=== PATIENT | female | born 1995 | race American Indian/Alaskan Native ===

== ENCOUNTER 2018-11-14 21:28 | Emergency (ER) | payer MEDICAID ==
--- NOTE | 2018-11-14 21:35 | Event Note ---
ED Screening Note ED Screening Note: pt states she has right sided abd pain that began 3 days ago no N/V no diarrhea no fever no urinary sx no vaginal bleeding no vaginal discharge LNMP:jul 14 pt is currently 17 weeks OB: Smiley /P:0/A:1 no pmhx no allergies to meds has been taking her vitamin former smoker former drinker no drug use This initial assessment/diagnostic orders/clinical plan/treatment(s) is/are subject to change based on patients health status, clinical progression and re- assessment by fellow clinical providers in the ED. Further treatment and workup at subsequent clinical providers discretion. Patient/guardian urged not to elope from the ED as their condition may be serious if not clinically assessed and managed. Initial orders include: labs, UA, OB US
[2018-11-14 22:10] LABS: Basophils # (Auto) 0.1 K/mm3 (0.0-0.1); Basophils % (Auto) 0.7 % (0.0-1.8); Eosinophils # (Auto) 0.2 K/mm3 (0.0-0.4); Eosinophils % (Auto) 2.7 % (0.0-4.3); Hematocrit 34.7 % (30.3-42.9); Hemoglobin 12.1 gm/dl (10.1-14.3); Lymphocytes # (Auto) 1.8 K/mm3 (1.2-5.4); Lymphocytes % (Auto) 24.3 % (13.4-35.0); Mean Corpuscular HGB Conc 35 % (30-34); Mean Corpuscular Volume 90 fl (79-97); Monocytes # (Auto) 0.6 K/mm3 (0.0-0.8); Monocytes % (Auto) 8.6 % (0.0-7.3); Platelet Count 219 K/mm3 (140-440); Red Blood Count 3.85 M/mm3 (3.65-5.03); Red Cell Distribution Width 13.9 % (13.2-15.2)
[2018-11-14 22:26] LABS: Alanine Aminotransferase 8 units/L (7-56); Albumin 3.4 g/dL (3.9-5); BUN/Creatinine Ratio 10; Blood Urea Nitrogen 7 mg/dL (7-17); Hemolysis Index 10
[2018-11-14 23:10] LABS: Bacteria,Urine 1+ /HPF (Negative); Bilirubin,Urine NEG (Negative); Blood,Urine NEG (Negative); Color,Urine Yellow (Yellow); Mucus,Urine 2+ /HPF; Protein,Urine <15 mg/dL mg/dL (Negative)
[2018-11-14] MEDS ORDERED: ZOFRAN IV ONE (23:14)
--- NOTE | 2018-11-15 00:37 | Ultrasound Report ---
PROCEDURE: US ABDOMEN LIMITED TECHNIQUE: Real-time sonography was performed of the gallbladder with image documentation. HISTORY: RUQ PAIN COMPARISONS: None . FINDINGS: Gallbladder is normal. The common bile duct is normal measuring 6 mm. The portion of the liver and ri ght kidney imaged are normal . IMPRESSION: Normal Examination . This document is electronically signed by Charis Caceres DO., November 15 2018 12:35:32 AM ET
--- NOTE | 2018-11-15 00:39 | Ultrasound Report ---
PROCEDURE: US OB >= 14 WEEKS FETUS TECHNIQUE: Real-time limited sonographic examination was performed for evaluation of well-bein g, placenta for each fetus with image documentation (1 or more fetuses). HISTORY: 17 weeks preg, right sided abd pain COMPARISONS: None . FINDINGS: MATERNAL Uterus: Within normal limits . Cervix length:, 6.4 cm. Internal Os: closed . FETUS IUP: Single living intrauterine . Position: Transverse . Placental position: Posterior, without previa . Amniotic fluid volume: Normal Heart rate and rhythm: 150 BPM, Regular . anatomic survey: Not performed on this study . MEASUREMENTS BPD: 4.1 cm . HC: 14.5 cm . AC: 12.2 cm . FL: 2.5 cm . Mean Gestational Age (composite criteria): 17 weeks 6 days . Ratio biometry: Normal . Estimated Weight: 207 grams Interval growth: No prior study . Estimated Due Date (earliest scan): 04/18/2019 . IMPRESSION: 1. Single living intrauterine gestation at approximately 17 weeks 6 days . 2. EDC by US 04/18/2019 . This document is electronically signed by Charis Caceres DO., November 15 2018 12:37:28 AM ET
--- NOTE | 2018-11-15 01:21 | Emergency Department Report ---
ED Abdominal Pain HPI - General Chief Complaint: Abdominal Pain Stated Complaint: PREG 17 WKS/R SIDE ABD PAIN Time Seen by Provider: 11/14/18 21:33 Source: patient Mode of arrival: Ambulatory Limitations: No Limitations - History of Present Illness Initial Comments: Patient is a A0 23-year-old -[place] female who is approximately 17 gestation presents to the ED with complaint of acute onset persistent right upper quadrant abdominal pain for the last 3 days. Patient denies nausea, vomiting, diarrhea, dysuria, urinary frequency and urgency, traumatic injury, heavy lifting, dizziness, headache, chest pain, shortness of breath, fever or c hills, vaginal bleeding or vaginal discharge and low back pain. MD Complaint: abdominal pain (RUQ Pain) -: Sudden, days(s) (3) Location: RUQ, epigastric Radiation: RUQ, epigastric Migration to: no migration Severity: moderate Severity scale (0 -10): 5 Quality: cramping, stabbing, aching, sharp Consistency: constant Improves With: nothing Worsens With: movement Associated Symptoms: denies other symptoms. denies: nausea, vomiting, diarrhea, fever, chills, constipation, dysuria, melena, hematuria, anorexia - Related Data Previous Rx's Medication Instructions Recorded Last Taken Type Cyclobenzaprine HCl [Flexeril 5 MG 5 mg PO Q8H PRN #15 tab 11/15/18 Unknown Rx TAB] Ranitidine HCl [Zantac] 150 mg PO Q12H #30 tablet 11/15/18 Unknown Rx Allergies Allergy/AdvReac Type Severity Reaction Status Date / Time No Known Allergies Allergy Unverified 11/14/18 21:31 ED Review of Systems ROS: Stated complaint: PREG 17 WKS/R SIDE ABD PAIN Other details as noted in HPI Constitutional: denies: chills, fever Eyes: denies: eye pain, eye discharge, vision change ENT: denies: ear pain, throat pain Respiratory: denies: cough, shortness of breath, wheezing Cardiovascular: denies: chest pain, palpitations Endocrine: no symptoms reported Gastrointestinal: abdominal pain (RUQ and Epigastric). denies: nausea, diarrhea, constipation, hematemesis, hematochezia Genitourinary: denies: urgency, dysuria, frequency, hematuria, discharge, abnormal menses, dyspareunia Musculoskeletal: denies: back pain, joint swelling, arthralgia Skin: denies: rash, lesions Neurological: denies: headache, weakness, paresthesias Psychiatric: denies: anxiety, depression Hematological/Lymphatic: denies: easy bleeding, easy bruising ED Past Medical Hx - Past Medical History Previous Medical History?: No - Surgical History Past Surgical History?: No - Social History Smoking Status: Former Smoker Substance Use Type: None - Medications Home Medications: Home Medications Medication Instructions Recorded Confirmed Last Taken Type Cyclobenzaprine HCl [Flexeril 5 MG 5 mg PO Q8H PRN #15 tab 11/15/18 Unknown Rx TAB] Ranitidine HCl [Zantac] 150 mg PO Q12H #30 tablet 11/15/18 Unknown Rx ED Physical Exam - General Limitations: No Limitations General appearance: alert, in no apparent distress - Head Head exam: Present: atraumatic, normocephalic, normal inspection - Eye Eye exam: Present: normal appearance, PERRL, EOMI. Absent: periorbital swelling, periorbital tenderness - ENT ENT exam: Present: normal exam, normal orophraynx, mucous membranes moist, TM's normal bilaterally, normal external ear exam - Neck Neck exam: Present: normal inspection, full ROM. Absent: tenderness - Respiratory Respiratory exam: Present: normal lung sounds bilaterally. Absent: respiratory distress, wheezes, rales, rhonchi, chest wall tenderness, accessory muscle use, decreased breath sounds, prolonged expiratory - Cardiovascular Cardiovascular Exam: Present: regular rate, normal rhythm, normal heart sounds. Absent: systolic murmur, diastolic murmur, rubs, gallop - GI/Abdominal GI/Abdominal exam: Present: soft, tenderness (RUQ and epigastric), guarding, normal bowel sounds, other (Gravid abdomen). Absent: rebound, rigid, hyperactive bowel sounds, hypoactive bowel sounds, organomegaly - Rectal Rectal exam: Present: deferred - Extremities Exam Extremities exam: Present: normal inspection, full ROM, normal capillary refill - Back Exam Back exam: Present: normal inspection, full ROM. Absent: tenderness, CVA tenderness (R), CVA tenderness (L), muscle spasm, paraspinal tenderness - Neurological Exam Neurological exam: Present: alert, oriented X3, CN II-XII intact, normal gait, reflexes normal - Psychiatric Psychiatric exam: Present: normal affect, normal mood, anxious - Skin Skin exam: Present: warm, dry, intact, normal color. Absent: rash ED Course Vital Signs 11/14/18 21:34 Temperature 98.3 F Pulse Rate 78 Respiratory 16 Rate Blood Pressure 116/76 [Right] O2 Sat by Pulse 100 Oximetry - Reevaluation(s) Reevaluation #1: 11/15/18 01:19 Patient is alert and oriented 3 and is not in distress, and vital signs are stable. Lab test results including urinalysis were reviewed and are unremarkable. Right upper quadrant gallbladder ultrasound shows a normal gallbladder and gallbladder wall thickness, no sludge or gallstones. Transvaginal ultrasound shows an IUP with a heart rate of 150 bpm and approximat gautam 17 weeks and 6 days. Patient was treated for pain in the ED and on reevaluation, patient's pain resolved. Patient was discharged home on antacids and muscle relaxant and advised to take Tylenol as needed for pain. Patient discharged home and advised to follow up with her DOORPERSON [facility] physician in 2-3 days for reevaluation or return to the ED immediately if symptoms get worse. 11/15/18 01:21 ED Medical Decision Making - Lab Data Result diagrams: 11/14/18 21:52 11/14/18 21:52 - Radiology Data Radiology results: report reviewed, image reviewed Gallbladder US: Normal gallbladder and gallbladder wall; no pericholecystic fluid or cholelithiasis US: An IUP of approximately 17 weeks 6 days with a FHR of 150 bpm - Medical Decision Making Patient is alert and oriented 3 and is not in distress, and vital signs are stable. Lab test results including urinalysis were reviewed and are unremarkable. Right upper quadrant gallbladder ultrasound shows a normal gallbladder and gallbladder wall thickness, no sludge or gallstones. Transvaginal ultrasound shows an IUP with a heart rate of 150 bpm and approximately 17 weeks and 6 days. Patient was treated for pain in the ED and on reevaluation, patient's pain resolved. Patient was discharged home on an tacids and muscle relaxant and advised to take Tylenol as needed for pain. Patient discharged home and advised to follow up with her DOORPERSON [facility] physician in 2- 3 days for reevaluation or return to the ED immediately if symptoms get worse. - Differential Diagnosis Acute RUQ abdomen pain; Muscle strain of abdominal wall, GERD Critical care attestation.: If time is entered above; I have spent that time in minutes in the direct care of this critically ill patient, excluding procedure time. ED Disposition Clinical Impression: Acute abdominal pain in right upper quadrant GERD (gastroesophageal reflux disease) Qualifiers: Esophagitis presence: without esophagitis Qualified Code(s): K21.9 - Gastro- esophageal reflux disease without esophagitis Abdominal muscle strain Qualifiers: Encounter type: initial encounter Qualified Code(s): S39.011A - Strain of muscle, fascia and tendon of abdomen, initial encounter Disposition: TO HOME OR SELFCARE Is pt being admited?: No Does the pt Need Aspirin: No Condition: Stable Instructions: Abdominal Pain (ED), Muscle Strain (ED), Gastroesophageal Reflux Disease (ED) Additional Instructions: Take medications with food, drink plenty of fluids and follow up with the [facility]ORPERSON [facility] physician in 2-3 days for reevaluation. Return to the ED immediately if symptoms get worse. Prescriptions: Cyclobenzaprine HCl [Flexeril 5 MG TAB] 5 mg PO Q8H PRN #15 tab PRN Reason: Muscle Spasm Ranitidine HCl [Zantac] 150 mg PO Q12H #30 tablet Referrals: Elgin BAILEY MD [Primary Care Provider] - 3-5 Days Time of Disposition: 01:26 Print Language: CITIZ[place] OF [place]
[2018-11-15 01:54] VITALS: BP 111/70
== END 2018-11-15 01:54 | disposition home or self-care (01) ==
LOC: ED 21:28
DX: O9A.212 Injury, poisoning and certain other consequences of external causes complicating pregnancy, second trimester (principal); S39.011A Strain of muscle, fascia and tendon of abdomen, initial encounter; O99.612 Diseases of the digestive system complicating pregnancy, second trimester; K21.9 Gastro-esophageal reflux disease without esophagitis; Z3A.17 17 weeks gestation of pregnancy; Z87.891 Personal history of nicotine dependence; X58.XXXA Exposure to other specified factors, initial encounter; Y93.89 Activity, other specified; Y92.488 Other paved roadways as the place of occurrence of the external cause; Y99.8 Other external cause status
CPT/HCPCS: 36415; 76705; 76805; 80053; 81001; 83690; 84702; 85025; 99284; J2405

== ENCOUNTER 2019-05-09 14:43 | Emergency (ER) | payer MEDICAID ==
--- NOTE | 2019-05-09 15:52 | Emergency Department Report ---
Chief Complaint: Extremity Problem,Nontraumatic Stated Complaint: LT FOOT NUMBNESS Time Seen by Provider: 05/09/19 15:54 - HPI History of Present Illness: 23 y o presents to ED cc of left foot pain s/p 4 weeks vaginal delivery pt states pain with walking and some numbness to the foot She denies sob, chest pain or any other symptoms - ROS Review of Systems: As Noted in HPI - Exam Vital Signs: Vital Signs 05/09/19 14:49 Temperature 99.2 F Pulse Rate 118 H Respiratory 16 Rate Blood Pressure 117/73 O2 Sat by Pulse 98 Oximetry Physical Exam: Gen.: Patient ambulatory without limping gait. No left foot extremity swelling or redness, no calf tenderness. pain to palpation of the left foot MSE screening note: Focused history and physical exam performed. Due to findings the following was ordered: ED Medical Decision Making - Lab Data Result diagrams: 05/09/19 17:00 05/09/19 17:00 - Medical Decision Making 23 y o female presents for left foot pain Pulse rate decreased to 103 d-dimer collected to rule out PE Pt states that she has to leave because her ride is leaving and she is unable to stay. D- dimer elevated, pt made aware and was sent to the main side to be evaluated by physician. Patient was sent to be treated prophylaxis for DVT due to no Doppler engineering technician parking available. ED Disposition for MSE Clinical Impression: Paresthesia of left foot, DVT (deep venous thrombosis), Left leg pain, Hyperkalemia Disposition: - TO HOME OR SELFCARE Is pt being admited?: No Does the pt Need Aspirin: No Condition: Stable Instructions: Deep Venous Thrombosis (ED), Paresthesia (ED), Foot Drop (ED), Arthralgia (ED), Piriformis Syndrome (ED) Additional Instructions: please take medication as prescribed. We are starting you on a blood thinner prophylactically until you can have your ultrasound performed on Saturday. If you have any bleeding complications return to the emergency room immediatel y. please go to the vascular ultrasound lab on Saturday (05/11/19) at 9 AM to have your ultrasound of your left leg. Follow-up with a primary care doctor in the next 2-3 days. Return to the emergency room for any new or worsening symptoms. Prescriptions: Cyclobenzaprine [Flexeril] 10 mg PO QHS PRN #30 tablet PRN Reason: Muscle Spasm Apixaban [Eliquis] 10 mg PO BID #6 tablet Gabapentin 300 mg PO BID #40 cap Referrals: PRIMARY CARE, [Primary Care Provider] - 3-5 Days LIONEL WEST MD [Staff Physician] - 3-5 Days [facility] [Provider Group] - 3-5 Days Forms: Work/School Release Form(ED) Time of Disposition: 15:50 Print Language: KOSOVAN
[2019-05-09 17:25] LABS: Hematocrit 34.7 % (30.3-42.9); Hemoglobin 11.2 gm/dl (10.1-14.3); Mean Corpuscular HGB Conc 32 % (30-34); Mean Corpuscular Volume 88 fl (79-97); Platelet Count 234 K/mm3 (140-440); Red Blood Count 3.94 M/mm3 (3.65-5.03); Red Cell Distribution Width 13.8 % (13.2-15.2)
[2019-05-09 17:39] LABS: BUN/Creatinine Ratio 16; Blood Urea Nitrogen 13 mg/dL (7-17); Calcium 8.2 mg/dL (8.4-10.2); Hemolysis Index 111
[2019-05-09 17:47] LABS: Basophils % (Auto) 0.3 % (0.0-1.8); Eosinophils # (Auto) 0.1 K/mm3 (0.0-0.4); Lymphocytes # (Auto) 1.2 K/mm3 (1.2-5.4); Lymphocytes % (Auto) 30.9 % (13.4-35.0); Monocytes # (Auto) 0.4 K/mm3 (0.0-0.8); Monocytes % (Auto) 9.1 % (0.0-7.3)
--- NOTE | 2019-05-09 18:29 | XRay Report ---
CHEST PA AND LATERAL VIEWS INDICATION: elev ddimer. COMPARISON: None FINDINGS: Support devices: None Heart: Normal Lungs/Pleura: No acute pulmonary or pleural findings. IMPRESSION: 1. No significant abnormality. Signer Name: Conor Easley MD Signed: 05/09/2019 6:25 PM Workstation Name: [id number]
[2019-05-09] MEDS ORDERED: HYDROcodone/ACETAMINOPHEN 5-325 MG TAB ONE (19:13)
[2019-05-09] MEDS ORDERED: HYDROcodone/ACETAMINOPHEN 5-325 MG TAB PO ONE (19:13)
[2019-05-09] MEDS ORDERED: SODIUM POLYSTYRENE 15 GM/60 ML ORAL LIQD PO ONE (20:37)
[2019-05-09] MEDS ORDERED: APIXABAN 5 MG TAB PO ONE (20:41)
--- NOTE | 2019-05-09 20:48 | Emergency Department Report ---
ED General Adult HPI - General Chief complaint: Extremity Problem,Nontraumatic Stated complaint: LT FOOT NUMBNESS Time Seen by Provider: 05/09/19 15:54 Source: patient Mode of arrival: Ambulatory Limitations: No Limitations - History of Present Illness Initial comments: Patient is a 23-year-old female presents emergency room with complaints of left lower leg pain that began 3 weeks ago. She has noticed a small amount of leg swelling. She states that she is and just had a baby on 04/08. She denies any complications. Denies any fall or injury. States occasionally she feels tingling to the dorsal surface of the left foot. she is ambulatory. Patient denies any chest pain, shortness of breath, hemoptysis, palpitations, any other symptoms. denies any calf pain. denies any past medical history or allergies medications. She is not breast-feeding. Severity scale (0 -10): 8 - Related Data Previous Rx's Medication Instructions Recorded Last Taken Type Cyclobenzaprine HCl [Flexeril 5 MG 5 mg PO Q8H PRN #15 tab 11/15/18 Unknown Rx TAB] raNITIdine HCl [Zantac] 150 mg PO Q12H #30 tablet 11/15/18 Unknown Rx Apixaban [Eliquis] 10 mg PO BID #6 tablet 05/09/19 Unknown Rx Cyclobenzaprine [Flexeril] 10 mg PO QHS PRN #30 tablet 05/09/19 Unknown Rx Gabapentin 300 mg PO BID #40 cap 05/09/19 Unknown Rx Allergies Allergy/AdvReac Type Severity Reaction Status Date / Time No Known Allergies Allergy Verified 05/09/19 19:12 ED Review of Systems ROS: Stated complaint: LT FOOT NUMBNESS Other details as noted in HPI Comment: All other systems reviewed and negative ED Past Medical Hx - Past Medical History Previous Medical History?: No - Surgical History Past Surgical History?: No - Social History Smoking Status: Never Smoker Substance Use Type: None - Medications Home Medications: Home Medications Medication Instructions Recorded Confirmed Last Taken Type Cyclobenzaprine HCl [Flexeril 5 MG 5 mg PO Q8H PRN #15 tab 11/15/18 Unknown Rx TAB] raNITIdine HCl [Zantac] 150 mg PO Q12H #30 tablet 11/15/18 Unknown Rx Apixaban [Eliquis] 10 mg PO BID #6 tablet 05/09/19 Unknown Rx Cyclobenzaprine [Flexeril] 10 mg PO QHS PRN #30 tablet 05/09/19 Unknown Rx Gabapentin 300 mg PO BID #40 cap 05/09/19 Unknown Rx ED Physical Exam - General Limitations: No Limitations General appearance: alert, in no apparent distress - Head Head exam: Present: atraumatic, normocephalic - Eye Eye exam: Present: normal appearance - ENT ENT exam: Present: mucous membranes moist - Respiratory Respiratory exam: Present: normal lung sounds bilaterally. Absent: respiratory distress, wheezes, rales, rhonchi, stridor, chest wall tenderness, accessory muscle use, decreased breath sounds, prolonged expiratory - Cardiovascular Cardiovascular Exam: Present: regular rate, normal rhythm, normal heart sounds. Absent: systolic murmur, diastolic murmur, rubs, gallop - Extremities Exam Extremities exam: Present: other (mild TTP over the left anterior díaz to the left foot, no ecchymosis, no deformity, small amount of edema from below the left knee to the left foot, no calf TTP, neurovascularly intact) - Neurological Exam Neurological exam: Present: alert, oriented X3 - Psychiatric Psychiatric exam: Present: normal affect, normal mood - Skin Skin exam: Present: warm, dry, intact ED Course Vital Signs 05/09/19 05/09/19 05/09/19 14:49 20:14 20:16 Temperature 99.2 F Pulse Rate 118 H 106 H Respiratory 16 18 17 Rate Blood Pressure 117/73 114/76 Blood Pressure [Left] O2 Sat by Pulse 98 99 97 Oximetry 05/09/19 05/09/19 20:30 21:01 Temperature Pulse Rate 108 H 93 H Respiratory 13 18 Rate Blood Pressure 122/90 Blood Pressure 130/81 [Left] O2 Sat by Pulse 98 99 Oximetry ED Medical Decision Making - Lab Data Result diagrams: 05/09/19 17:00 05/09/19 17:00 Lab Results 05/09/19 05/09/19 05/09/19 Range/Units 16:19 17:00 17:00 WBC 3.9 L (4.5-11.0) K/mm3 RBC 3.94 (3.65-5.03) M/mm3 Hgb 11.2 (10.1-14.3) gm/dl Hct 34.7 (30.3-42.9) % MCV 88 (79-97) fl MCH 29 (28-32) pg MCHC 32 (30-34) % RDW 13.8 (13.2-15.2) % Plt Count 234 (140-440) K/mm3 Lymph % (Auto) 30.9 (13.4-35.0) % [place] % (Auto) 9.1 H (0.0-7.3) % Eos % (Auto) 3.0 (0.0-4.3) % Baso % (Auto) 0.3 (0.0-1.8) % Lymph # 1.2 (1.2-5.4) K/mm3 [place] # 0.4 (0.0-0.8) K/mm3 Eos # 0.1 (0.0-0.4) K/mm3 Baso # 0.0 (0.0-0.1) K/mm3 Seg Neutrophils % 56.7 (40.0-70.0) % Seg Neutrophils # 2.2 (1.8-7.7) K/mm3 D-Dimer 1111.02 H (0-234) ng/mlDDU Sodium 140 (137-145) mmol/L Potassium 5.8 H (3.6-5.0) mmol/L Chloride 105.8 (98-107) mmol/L Carbon Dioxide 25 (22-30) mmol/L Anion Gap 15 mmol/L BUN 13 (7-17) mg/dL Creatinine 0.8 (0.7-1.2) mg/dL Estimated GFR > 60 ml/min BUN/Creatinine Ratio 16 % Glucose 94 (65-100) mg/dL Calcium 8.2 L (8.4-10.2) mg/dL HCG, Qual (Negative) 05/09/19 Range/Units 17:00 WBC (4.5-11.0) K/mm3 RBC (3.65-5.03) M/mm3 Hgb (10.1-14.3) gm/dl Hct (30.3-42.9) % MCV (79-97) fl MCH (28-32) pg MCHC (30-34) % RDW (13.2-15.2) % Plt Count (140-440) K/mm3 Lymph % (Auto) (13.4-35.0) % [place] % (Auto) (0.0-7.3) % Eos % (Auto) (0.0-4.3) % Baso % (Auto) (0.0-1.8) % Lymph # (1.2-5.4) K/mm3 [place] # (0.0-0.8) K/mm3 Eos # (0.0-0.4) K/mm3 Baso # (0.0-0.1) K/mm3 Seg Neutrophils % (40.0-70.0) % Seg Neutrophils # (1.8-7.7) K/mm3 D-Dimer (0-234) ng/mlDDU Sodium (137-145) mmol/L Potassium (3.6-5.0) mmol/L Chloride (98-107) mmol/L Carbon Dioxide (22-30) mmol/L Anion Gap mmol/L BUN (7-17) mg/dL Creatinine (0.7-1.2) mg/dL Estimated GFR ml/min BUN/Creatinine Ratio % Glucose (65-100) mg/dL Calcium (8.4-10.2) mg/dL HCG, Qual Negative (Negative) - Medical Decision Making Patient is a 23-year-old female presents emergency room with complaints of left lower leg pain that began 3 weeks ago. She has noticed a small amount of leg swelling. She states that she is and just had a baby on 04/08. She denies any complications. Denies any fall or injury. States occasionally she feels tingling to the dorsal surface of the left foot. she is ambulatory. Patient denies any chest pain, shortness of breath, hemoptysis, palpitations, any other symptoms. denies any calf pain. denies any past medical history or allergies medications. She is not breast-feeding. Initial vitals with tachycardia which improved upon repeat. Labs significant for elevated d-dimer and hyperkalemia at 5.8. on exam: mild TTP over the left anterior díaz to the left foot, no ecchymosis, no deformity, small amount of edema from below the left knee to the left foot, no calf TTP, neurovascularly intact. Patient's elevated d-dimer could be related to DVT or . Patient denies any chest pain, shortness of breath, patient is not tachypneic, has a normal oxygen saturation, is not having signs or symptoms of PE. Patient given Kayexalate for hyperkalemia. Discussed case with Dr. Laura Caceres who recommended starting patient on eliquis and have patient return for her Doppler ultrasound as we do not have a refinish technician today. given her first dose of eliquis in the ED and given prescription for eliquis until saturday. advised pt to please take medication as prescribed. We are starting you on a blood thinner prophylactically until you can have your ultrasound performed on Saturday. If you have any bleeding complications return to the emergency room immediately. please go to the vascular ultrasound lab on Saturday (05/11/19) at 9 AM to have your ultrasound of your left leg. Follow-up with a primary care doctor in the next 2-3 days. Return to the emergency room for any new or worsening symptoms. - Differential Diagnosis DVT, neuropathy, muscle spasm Critical care attestation.: If time is entered above; I have spent that time in minutes in the direct care of this critically ill patient, excluding procedure time. ED Disposition Clinical Impression: Paresthesia of left foot, Left leg pain, Hyperkalemia Disposition: DC-01 TO HOME OR SELFCARE Is pt being admited?: No Does the pt Need Aspirin: No Condition: Stable Instructions: Deep Venous Thrombosis (ED), Paresthesia (ED), Foot Drop (ED), Arthralgia (ED), Piriformis Syndrome (ED) Additional Instructions: please take medication as prescribed. We are starting you on a blood thinner prophylactically until you can have your ultrasound performed on Saturday. If you have any bleeding complications return to the emergency room immediately. please go to the vascular ultrasound lab on Saturday (05/11/19) at 9 AM to have your ultrasound of your left leg. Follow-up with a primary care doctor in the next 2-3 days. Return to the emergency room for any new or worsening symptoms. Prescriptions: Cyclobenzaprine [Flexeril] 10 mg PO QHS PRN #30 tablet PRN Reason: Muscle Spasm Apixaban [Eliquis] 10 mg PO BID #6 tablet Gabapentin 300 mg PO BID #40 cap Referrals: [facility] [Provider Group] - 3-5 Days PRIMARY CARE, [Primary Care Provider] - 3-5 Days LIONEL WEST MD [Staff Physician] - 3-5 Days Forms: Work/School Release Form(ED) Time of Disposition: 20:47 Print Language: ARABIC
[2019-05-09 21:02] VITALS: BP 130/81
== END 2019-05-09 21:43 | disposition home or self-care (01) ==
LOC: ED 14:43
DX: R20.0 Anesthesia of skin (principal); M79.662 Pain in left lower leg; E87.5 Hyperkalemia; Z79.899 Other long term (current) drug therapy
CPT/HCPCS: 36415; 71046; 80048; 84703; 85025; 85379

== ENCOUNTER 2019-05-11 11:27 | Outpatient (CLI) | payer MEDICAID ==
--- NOTE | 2019-05-11 14:09 | Vascular Lab Report ---
DUPLEX DOPPLER LEFT LOWER EXTREMITY VEINS INDICATION: LEFT LEG SWELLING AND PAIN FINDINGS: There is no thrombus within the deep veins of the left lower extremity from the common femoral to the calf veins. There is normal compression and augmentation on spectral analysis. IMPRESSION: No sonographic evidence for DVT in the left lower extremity. Signer Name: Mateus Vasquez MD Signed: 05/11/2019 2:04 PM Workstation Name: [id number]
== END 2019-05-11 11:28 | disposition home or self-care (01) ==
LOC: VAS 11:27
PROVIDERS: ATTEND Physician Assistant
DX: R22.42 Localized swelling, mass and lump, left lower limb (principal); M79.662 Pain in left lower leg